=== PATIENT | male | born 1965 | race Two or more races ===

== ENCOUNTER 2023-09-26 23:25 | Emergency (ER) | payer MEDICAID ==
[~2023-09-26] VITALS: Ht 167.6 cm; Wt 99.8 kg
[2023-09-27] MEDS ORDERED: KETOROLAC TROMETHAMINE INJ 30 MG/ML VIAL ONE (00:02)
[2023-09-27] MEDS: KETOROLAC TROMETHAMINE INJ 30 MG/ML VIAL IM ONE (00:06)
[2023-09-27 00:43] LABS: BASOPHILS % (AUTO) 0.6 % (0.0-2.0); EOSINOPHILS % (AUTO) 0.1 % (0.0-6.0); HEMATOCRIT 43 % (39-51); HEMOGLOBIN 14.9 g/dL (13.5-17.5); LYMPHOCYTES # (AUTO) 1.6 K/uL (0.8-4.8); LYMPHOCYTES % (AUTO) 17.8 % (20.0-44.0); MEAN CORPUSCULAR HEMOGLOBIN 29 PG (26.0-33.0); MEAN CORPUSCULAR HGB CONC 34 g/dl (31.0-36.0); MEAN CORPUSCULAR VOLUME 85 fL (80-96); MONOCYTES # (AUTO) 0.9 K/uL (0.1-1.30); MONOCYTES % (AUTO) 9.8 % (2.0-12.0); NEUTROPHILS # (AUTO) 6.4 K/uL (1.8-8.9); NEUTROPHILS % (AUTO) 71.7 % (43.0-81.0); PLATELET COUNT (AUTO) 249 K/uL (150-450); RED BLOOD CELL COUNT(AUTO) 5.12 MIL/uL (4.5-6.0); RED CELL DISTRIBUTION WIDTH 14.1 % (11.5-15.0); WHITE BLOOD COUNT (AUTO) 8.9 K/uL (4.3-11.0)
[2023-09-27 01:14] LABS: APPEARANCE,URINE CLEAR (CLEAR); BILIRUBIN,URINE NEGATIVE (NEGATIVE); BLOOD, URINE 1+ Ery/uL (NEGATIVE); COLOR,URINE YELLOW (YELLOW); KETONES,URINE NEGATIVE (NEGATIVE); LEUKOCYTE ESTERASE ,URINE NEGATIVE (NEGATIVE); NITRITE, URINE NEGATIVE (NEGATIVE); PROTEIN,URINE NEGATIVE (NEGATIVE); UGLUCOSE NEGATIVE (NEGATIVE); UROBILINOGEN,URINE 0.2 EU/dL (0.2)
[2023-09-27 01:15] LABS: CALCIUM, SERUM 8.5 mg/dL (8.5-10.1); CREATININE 0.7 mg/dL (0.6-1.3); POTASSIUM 3.8 mmol/L (3.5-5.1)
[2023-09-27 01:19] LABS: ADD URINE CULTURE NO; BACTERIA,URINE Rare /HPF (None Seen); SQUAMOUS EPITHELIAL CELL,UR Few /HPF (None Seen); WBC,URINE 0-2 /HPF (0-3)
[2023-09-27 01:21] LABS: ALBUMIN 3.2 g/dL (3.4-5.0); BILIRUBIN,TOTAL 1.1 mg/dL (0.2-1.0); TOTAL PROTEIN, SERUM 7.1 g/dL (6.4-8.2)
[2023-09-27 01:22] LABS: AMPHETAMINE, URINE NEGATIVE (NEGATIVE); BARBITURATE, URINE NEGATIVE (NEGATIVE); BENZODIAZEPINE, URINE NEGATIVE (NEGATIVE); CANNABINOID, URINE NEGATIVE (NEGATIVE); COCCAINE, URINE NEGATIVE (NEGATIVE); OPIATE, URINE NEGATIVE (NEGATIVE); PHENCYCLIDINE SCREEN,URINE NEGATIVE (NEGATIVE)
[2023-09-27 01:28] LABS: LACTIC ACID 1.1 mmol/L (0.4-2.0)
[2023-09-27] MEDS ORDERED: SULF1TAB48 PO (01:45)
[2023-09-27 01:53] VITALS: BP 135/84; TEMP 100.4; O2SAT 99
== END 2023-09-27 01:53 | disposition home or self-care (01) ==
LOC: ER 23:31
DX: N40.0 Benign prostatic hyperplasia without lower urinary tract symptoms (principal); N30.90 Cystitis, unspecified without hematuria; E11.9 Type 2 diabetes mellitus without complications
CPT/HCPCS: 99285; 74176; 76870; 36415; 80307; 81001; 96372; 85025; 83605; 80053; J1885

== ENCOUNTER 2024-07-21 14:46 | Emergency (ER) | payer MEDICAID, OTHER ==
[~2024-07-21] VITALS: Ht 167.6 cm; Wt 86.2 kg
[~2024-07-21 14:46] MED LIST: SULF1TAB48 PO
[2024-07-21 14:58] VITALS: BP 136/69; TEMP 97.9; O2SAT 99
[2024-07-21] MEDS ORDERED: TETRAcaine 5 ML BOTTLE ONE (15:16)
[2024-07-21] MEDS ORDERED: FLUORESCEIN SODIUM OPHTH 1 EA STRIP ONE (15:16)
[2024-07-21] MEDS ORDERED: OLOP5DRO15 EACHEYE (15:28)
[2024-07-21] MEDS ORDERED: POLY15DR17 EACHEYE (15:28)
[2024-07-21] MEDS: TETRACAINE HCL 0.5% OPHTALMIC 15 ML BOTTLE LEFTEYE ONE (15:32)
[2024-07-21] MEDS: FLUORESCEIN SODIUM OPHTH 1 EA STRIP OP ONE (15:32)
[2024-07-21] MEDS ORDERED: OLOP5DRO15 LEFTEYE (18:15)
[2024-07-21] MEDS ORDERED: POLY15DR40 EACHEYE (18:15)
== END 2024-07-21 15:34 | disposition home or self-care (01) ==
LOC: ER 14:51
DX: H10.9 Unspecified conjunctivitis (principal); E11.9 Type 2 diabetes mellitus without complications